=== PATIENT | male | born 1985 | race Caucasian/White ===

== ENCOUNTER 2022-04-13 11:24 | Inpatient (IN) | payer MEDICAID ==
[~2022-04-13] VITALS: Ht 172.7 cm; Wt 92.2 kg
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
--- NOTE | 2022-04-13 12:35 | NUR ---
PT TAKEN TO CT
--- NOTE | 2022-04-13 12:36 | NUR ---
DR ESCUDERO AT BEDSIDE
[2022-04-13] MEDS ORDERED: TDAP [DIPH/PERTUSSIS/TET] 0.5 ML VIAL IM ONE (13:00)
[2022-04-13] MEDS ORDERED: ONDANSETRON 4 MG TAB.RAPDIS SL ONE (13:00)
--- NOTE | 2022-04-13 13:57 | NUR ---
DR. DAVIS SPEAKING WITH DR. ESCUDERO.
--- NOTE | 2022-04-13 14:05 | NUR ---
MOVE SHEET SUBMITTED.
[2022-04-13] MEDS ORDERED: LEVO50TA PO (14:08)
--- NOTE | 2022-04-13 14:17 | NUR ---
[facility] CALLED ARTIFICIAL INSEMINATOR PAGED.
[2022-04-13 14:29] LABS: BASOPHILS # (AUTO) 0.1 K/uL (0.0-0.2); BASOPHILS % (AUTO) 0.6 % (0.0-2.0); EOSINOPHILS % (AUTO) 0.9 % (0.0-6.0); HEMATOCRIT 40 % (39-51); HEMOGLOBIN 12.5 g/dL (13.5-17.5); LYMPHOCYTES # (AUTO) 1.7 K/uL (0.8-4.8); LYMPHOCYTES % (AUTO) 14.3 % (20.0-44.0); MEAN CORPUSCULAR HGB CONC 32 g/dl (31.0-36.0); MEAN CORPUSCULAR VOLUME 68 fL (80-96); MONOCYTES # (AUTO) 0.8 K/uL (0.1-1.30); NEUTROPHILS # (AUTO) 9.2 K/uL (1.8-8.9); NEUTROPHILS % (AUTO) 77.2 % (43.0-81.0); PLATELET COUNT (AUTO) 222 K/uL (150-450); RED BLOOD CELL COUNT(AUTO) 5.83 MIL/uL (4.5-6.0); WHITE BLOOD COUNT (AUTO) 11.9 K/uL (4.3-11.0)
--- NOTE | 2022-04-13 14:37 | NUR ---
COVID SWAB DONE SENT TO LAB
[2022-04-13 14:48] LABS: ALBUMIN 4.3 g/dL (3.4-5.0); BILIRUBIN,DIRECT 0.1 mg/dL (0.0-0.2); BILIRUBIN,TOTAL 0.5 mg/dL (0.2-1.0); CALCIUM, SERUM 9.3 mg/dL (8.5-10.1); CREATININE 0.9 mg/dL (0.6-1.3); POTASSIUM 3.9 mmol/L (3.5-5.1)
--- NOTE | 2022-04-13 15:24 | NUR ---
[facility] CALLED ESTATE ADMINISTRATOR PAGED.
[2022-04-13 15:29] LABS: EOSINOPHILS % (MANUAL) 1 % (0-4); LYMPHOCYTES % (MANUAL) 15 % (16-48); MONOCYTES % (MANUAL) 9 % (0-11.0); NEUTROPHILS % (MANUAL) 75 (42-76)
--- NOTE | 2022-04-13 16:39 | NUR ---
18g CATHETER ESTABLISHED FLUSHING WITH BLOOD RETURN
--- NOTE | 2022-04-13 17:41 | NUR ---
BED 323-2
--- NOTE | 2022-04-13 17:48 | NUR ---
REPORT GIVEN TO EUGENE CERDA FOR JOMAR
--- NOTE | 2022-04-13 18:59 | NUR ---
MS RN CLOSING NOTES RECEIVED PATIENT VIA GURNEY FROM ER, A/O X 4, ABLE TO MAKE NEEDS KNOWN, AMBULATORY, TOLERATING WELL ON ROOM AIR WITH NO S/S RESPIRATORY DISTRESS. COMPLAINT OF SLIGHT HEADACHE, PRN TYLENOL 650 MG PO GIVEN REQUESTED. SAFETY MEASURES IN PLACE: BED IN LOWEST LOCKED POSITION, SIDE RAILS UP X 2, CALL LIGHT WITHIN REACH. 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
[2022-04-13] MEDS ORDERED: Z GUARD REMEDY 4 OZ OINT TP PRN (19:00)
[2022-04-13] MEDS ORDERED: ACETAMINOPHEN 325 MG TABLET PO PRN (19:00)
[2022-04-13] MEDS ORDERED: ONDANSETRON HCL/PF 4 MG/2 ML VIAL IVP PRN (19:00)
--- NOTE | 2022-04-13 19:39 | NUR ---
RN OPENING NOTES RECEIVED PT IN BED, AWAKE, WATCHING TV WITH GIRLFRIEND AT BEDSIDE. AOx4, ABLE TO MAKE NEEDS KNOWN. ON RA AND TOLERATING WELL. NO SOB NOTED. NO S/SX OF RESPIRATORY DISTRESS NOTED. TELE MONITOR DETECTS SINUS RHYTHM. IV ACCESS IN RAC #18G. IV IS INTACT, PATENT, AND FLUSHING WELL. SAFETY PRECAUTIONS IN PLACE: BED IN LOWEST, LOCKED POSITION, SIDERAILS UPx2, AND BRAKES ON. TABLE AND CALL LIGHT WITHIN REACH. ALL NEEDS MET AT THIS TIME.
[2022-04-13 20:00] VITALS: BP 103/68
--- NOTE | 2022-04-14 06:42 | NUR ---
RN CLOSING NOTES PT IN BED, ASLEEP, AWAKENS TO VERBAL STIMULI. AOx4, ABLE TO MAKE NEEDS KNOWN. ON RA AND TOLERATING WELL. NO SOB NOTED. NO S/SX OF RESPIRATORY DISTRESS NOTED. IV ACCESS IN RAC #18G. IV IS INTACT, PATENT, AND FLUSHING WELL. ALL ORDERS CARRIED OUT. ALL NEEDS MET. PT KEPT CLEAN AND DRY. SAFETY PRECAUTIONS IN PLACE: BED IN LOWEST, LOCKED POSITION, SIDERAILS UPx2, AND BRAKES ON. TABLE AND CALL LIGHT WITHIN REACH. WILL ENDORSE TO ONCOMING SHIFT FOR JOMAR.
--- NOTE | 2022-04-14 07:26 | NUR ---
RN OPENING NOTES RECEIVED PATIENT IN BED, AWAKE, A/O X4, VERBALLY RESPONSIVE. NO SIGNS OF ACUTE DISTRESS NOTED. ON ROOM AIR, TOLERATING WELL. NO SOB NOTED. NOTED WITH IV ACCESS ON RIGHT ANTECUBITAL #18G, INTACT AND PATENT, SALINE LOCKED. DENIES ANY PAIN OR HEADACHE AT THIS TIME. SAFETY MEASURE IN PLACE. BED IN LOWEST AND LOCKED POSITION, SIDE RAILS UP X2, CALL LIGHT PLACED WITHIN EASY REACH. WILL CONTINUE TO MONITOR PATIENT.
[2022-04-14 08:00] VITALS: BP 124/64
[2022-04-14] MEDS ORDERED: ACET325T53 PO (14:10)
--- NOTE | 2022-04-14 15:10 | NUR ---
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 PATIENT REMAINS AWAKE, ALERT AND ORIENTED X4, VERBALLY RESPONSIVE AND ABLE TO MAKE NEEDS KNOWN. DENIED ANY PAIN. IV ACCESS ON RIGHT ANTECUBITAL AREA REMOVED, PRESSURE DRESSING APPLIED. ARM NAME BAND REMOVED. EXIT CARE FOLDER GIVEN TO PATIENT, DISCHARGE INSTRUCTIONS PROVIDED. PATIENT REFUSED TO HAVE PHOTO TAKEN OF LEFT BROWN ABRASION. PATIENT IN A HURRY TO GO HOME AND LEAVE THE HOSPITAL. PATIENT LEFT UNIT @1505, AMBULATORY. WALKED SELF TO THE LOBBY. TONYA PICKED UP PATIENT VIA PRIVATE CAR. CN AWARE OF DISCHARGE.
== END 2022-04-14 15:15 | disposition home or self-care (01) | DRG 55 ==
LOC: ER 11:43 → TELE 17:49 → MED 23:03
PROVIDERS: ADMIT Nurse Practitioner Acute Care; ATTEND Nurse Practitioner Acute Care
DX: S06.340A Traumatic hemorrhage of right cerebrum without loss of consciousness, initial encounter (principal); E03.9 Hypothyroidism, unspecified; S80.812A Abrasion, left lower leg, initial encounter; S80.811A Abrasion, right lower leg, initial encounter; V69.49XA Driver of heavy transport vehicle injured in collision with other motor vehicles in traffic accident, initial encounter; Y93.9 Activity, unspecified; R40.2362 Coma scale, best motor response, obeys commands, at arrival to emergency department; R40.2142 Coma scale, eyes open, spontaneous, at arrival to emergency department; R40.2252 Coma scale, best verbal response, oriented, at arrival to emergency department; Z20.822 Contact with and (suspected) exposure to COVID-19; Y92.410 Unspecified street and highway as the place of occurrence of the external cause; Z79.890 Hormone replacement therapy
CPT/HCPCS: 36415; 70450-TC; 73590-TC; 80048-TC; 80076-TC; 85025-TC; 85730-TC; 87081-TC; C9803; G0378